=== PATIENT | male | born 1990 | race Caucasian/White ===

== ENCOUNTER 2021-12-29 08:39 | Emergency (ER) | payer OTHER ==
[2021-12-29] MEDS ORDERED: SODIUM CHLORIDE 0.9% 1,000 ML IV STA (09:19)
[2021-12-29] MEDS ORDERED: KETOROLAC 30 MG/ML VIAL IVP STA (09:19)
[2021-12-29 09:21] LABS: BASOPHILS # (AUTO) 0.1 10^3/uL (0.0-0.1); BASOPHILS % (AUTO) 0.4 %; EOSINOPHILS % (AUTO) 0.3 %; HCT - HEMATOCRIT 45.4 % (42.0-52.0); HGB - HEMOGLOBIN 15.7 g/dL (14.0-18.0); LYMPHOCYTES # (AUTO) 1.8 10^3/uL (1.5-3.5); MEAN CORPUSCULAR HEMOGLOBIN 32.6 pg (27.0-31.0); MEAN CORPUSCULAR HGB CONC 34.6 g/dL (32.0-36.0); MEAN CORPUSCULAR VOLUME 94.4 fL (80.0-94.0); MEAN PLATELET VOLUME 11.2 fL (7.4-11.4); MONOCYTES # (AUTO) 0.6 10^3/uL (0.0-1.0); NEUTROPHILS # (AUTO) 12.6 10^3/uL (1.5-6.6); PLT - PLATELET COUNT 243 10^3/uL (130-450); RED BLOOD COUNT 4.81 10^6/uL (4.70-6.10); RED CELL DISTRIBUTION WIDTH 11.9 % (12.0-15.0); WHITE BLOOD COUNT 15.2 x10^3/uL (4.8-10.8)
[2021-12-29 09:30] LABS: ALBUMIN 4.8 g/dL (3.2-5.5); ALBUMIN/GLOBULIN RATIO 1.8 (1.0-2.2); CALCIUM 9.2 mg/dL (8.5-10.3); CREATININE 0.9 mg/dL (0.6-1.2); POTASSIUM 3.8 mmol/L (3.5-5.0); TOTAL PROTEIN 7.4 g/dL (6.7-8.2)
--- NOTE | 2021-12-29 09:53 | CT Report ---
PROCEDURE: ABDOMEN/PELVIS WO INDICATIONS: L flank pain TECHNIQUE: Noncontrast 5 mm thick sections acquired from the diaphragms to the symphysis. 5 mm coronal and sagi ttal reformats were then performed. For radiation dose reduction, the following was used: automated exposure control, adjustment of mA and/or kV according to patient size. COMPARISON: None. FINDINGS: Image quality: Excellent. ABDOMEN: Lung bases: Lung bases are clear. Heart size is normal. Solid organs: Mild left hydronephrosis. No perinephric inflammation. No retained calculi. Mild left h ydroureter. A 3 mm ovoid calcification is present in the left distal ureter a few centimeters proxima l to the ureterovesicular junction. No right-sided renal or ureteral calculi. The unenhanced appearance of the liver, gallbladder, biliary system, pancreas, spleen, and adrenal gl ands is normal. Peritoneum and bowel: Unenhanced stomach and bowel loops demonstrate normal wall thickness and calib er. The appendix contains a small amount of radiodense material and gas. No periappendiceal inflammat ion. Occasional distal descending colon diverticula. No free fluid or air. Nodes and vessels: No retroperitoneal or mesenteric adenopathy by size criteria. Aorta and inferior vena cava are normal in caliber. Miscellaneous: Tiny fat-containing umbilical hernia.. PELVIS: Genitourinary: Bladder wall thickness is normal. Normal size prostate gland. Miscellaneous: No inguinal hernias or adenopathy. Bones: No suspicious bony lesions. No vertebral body compression fractures. IMPRESSION: 1. 3 mm left distal ureteral calculus causing mild hydroureteronephrosis. Reviewed by: Maria Fernanda Zazueta MD on 12/29/2021 8:51 AM [email or web address] Approved by: Maria Fernanda Zazueta MD on 12/29/2021 8:51 AM AKDT Station ID: [id number]
--- NOTE | 2021-12-29 10:14 | ED Physician Documentation ---
PD HPI MALE - Stated complaint Stated Complaint: LT SIDE PX - Chief complaint Chief Complaint: Abd Pain - History obtained from History obtained from: Patient, Family - History of Present Illness Timing - onset: Today Timing - duration: Hours Timing - details: Abrupt onset, Still present Associated symptoms: Testiclar pain, Back pain. No: Hematuria, Discharge Similar symptoms before: Diagnosis (kidney stone) Recently seen: Not recently seen - Additional information Additional information: 31-year-old Quyen Saxena has awoken this morning with left-sided flank pain, nausea and diaphoresis. He is in significant pain similar to what he is had with a prior kidney stone. He is come to the emergency department for evaluation. He was not ill prior to this. Review of Systems Constitutional: denies: Fever Ears: denies: Ear pain Nose: denies: Congestion Throat: denies: Sore throat Cardiac: denies: Chest pain / pressure, Palpitations Respiratory: denies: Dyspnea, Cough GI: reports: Abdominal Pain, Nausea. denies: Vomiting, Constipation, Diarrhea : denies: Dysuria Skin: denies: Rash Musculoskeletal: reports: Back pain. denies: Neck pain, Extremity pain PD PAST MEDICAL HISTORY - Past Medical History Past Medical History: Yes Cardiovascular: None Respiratory: None Neuro: None Endocrine/Autoimmune: None GI: None : Kidney stones HEENT: None Psych: None Musculoskeletal: None Derm: None - Past Surgical History Past Surgical History: No - Present Medications Home Medications: Ambulatory Orders Medication Instructions Recorded Confirmed HYDROcod/ACETAM 5/325 [[place]isco[place] 5/325] 1 - 2 tablet PO Q6H PRN #14 tablet 12/29/21 - Allergies Allergies/Adverse Reactions: Allergies Allergy/AdvReac Type Severity Reaction Status Date / Time No Known Drug Allergies Allergy Verified 12/29/21 08:55 - Social History Does the pt smoke?: No Smoking Status: Never smoker - Immunizations Immunizations are current?: Yes PD ED PE NORMAL - Vitals Vital signs reviewed: Yes (tchypneic) - General General: Alert and oriented X 3, Well developed/nourished, Other (31 y/o male appears to be in pain with grunting and grimacing ) - HEENT HEENT: Atraumatic, PERRL, EOMI - Neck Neck: Supple, no meningeal sign, No bony TTP - Cardiac Cardiac: RRR, No murmur - Respiratory Respiratory: No respiratory distress, Clear bilaterally - Abdomen Abdomen: Normal bowel sounds, Soft, Non tender, Non distended, No organomegaly - Back Back: No CVA TTP, No spinal TTP - Derm Derm: Normal color, Warm and dry, No rash - Extremities Extremities: No deformity, No edema - Neuro Neuro: Alert and oriented X 3, 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, No motor deficit, No sensory deficit, Normal speech Eye Opening: Spontaneous Motor: Obeys Commands Verbal: Oriented GCS Score: 15 - Psych Psych: Normal mood, Normal affect Results - Vitals Vitals: Vital Signs - 24 hr 12/29/21 12/29/21 08:55 09:37 Temperature 36.3 C L Heart Rate 48 L 47 L Respiratory 28 H 20 Rate Blood Pressure 125/75 123/76 O2 Saturation 100 100 Oxygen O2 Source Room air - Labs Labs: Laboratory Tests 12/29/21 12/29/21 12/29/21 09:13 09:13 10:30 WBC 15.2 H RBC 4.81 Hgb 15.7 Hct 45.4 MCV 94.4 H MCH 32.6 H MCHC 34.6 RDW 11.9 L Plt Count 243 MPV 11.2 Neut # (Auto) 12.6 H Lymph # (Auto) 1.8 Rains # (Auto) 0.6 Eos # (Auto) 0.0 Baso # (Auto) 0.1 Absolute Nucleated RBC 0.00 Nucleated RBC % 0.0 Sodium 140 Potassium 3.8 Chloride 104 Carbon Dioxide 26 Anion Gap 10.0 BUN 11 Creatinine 0.9 Estimated GFR (MDRD) 98 Glucose 168 H Calcium 9.2 Total Bilirubin 1.0 AST 70 H ALT 52 Alkaline Phosphatase 50 Total Protein 7.4 Albumin 4.8 Globulin 2.6 Albumin/Globulin Ratio 1.8 Lipase 28 Urine Color YELLOW Urine Clarity CLEAR Urine pH 6.0 Ur Specific [place] 1.020 Urine Protein NEGATIVE Urine Glucose (UA) NEGATIVE Urine Ketones 15 H Urine Occult Blood LARGE H Urine Nitrite NEGATIVE Urine Bilirubin NEGATIVE Urine Urobilinogen 0.2 (NORMAL) Ur Leukocyte Esterase NEGATIVE Urine RBC 11-25 H Urine WBC 4-5 Ur Squamous Epith Cells NONE SEEN Urine Bacteria None Seen Ur Microscopic Review INDICATED Urine Culture Comments NOT INDICATED - Rads (name of study) cT Radiology: Prelim report reviewed (Impression: 1. 3 mm left distal ureteral calculus causing mild hydro ureteral nephrosis.) Procedures - Bedside sono Bedside sono by EMP: With use of bedside ultrasound the left kidney is imaged the area is sonographically tender there is evidence of hydronephrosis and there is no perinephric fluid. PD MEDICAL DECISION MAKING - ED course Complexity details: reviewed results, re-evaluated patient, considered differential, d/w patient, d/w family ED course: 31-year-old male presents to the emergency department with left flank pain has hydro on bedside ultrasound appears uncomfortable he is treated with a liter of saline and 30 mg of Toradol with marked improvement in his pain. A CT scan demonstrates a 3 mm distal ureteral stone. We will send the patient home with some pain medication if this is required and we will refer him to urology and do not expect him to need the referral. Departure - Departure Disposition: Home, Self Care Clinical Impression: Ureterolithiasis Condition: Stable Instructions: ED Stone Renal W Colic Follow-Up: DAMON SARMIENTO DO [Primary Care Provider] - Jude Ayala MD [Physician No Access] - Prescriptions: HYDROcod/ACETAM 5/325 [[place]iscoe 5/325] 1 - 2 tablet PO Q6H PRN #14 tablet PRN Reason: Pain Comments: Cristinuel, today it looks like you have a kidney stone that is just about anterior bladder and our expectation is that this will pass without a problem. If you have spikes in the similar pain that likely indicates the stone has not passed entirely. It may take up to 2 days for it to pass. I have E scribed some pain medication to the [facility] in [place] for you if you need that.
[2021-12-29 10:42] LABS: BILIRUBIN,URINE NEGATIVE (NEGATIVE); GLUCOSE, URINE (UA) NEGATIVE (NEGATIVE); KETONES,URINE (UA) 15 mg/dL (NEGATIVE); LEUKOCYTE ESTERASE, URINE NEGATIVE (NEGATIVE); NITRITE,URINE NEGATIVE (NEGATIVE); OCCULT BLOOD,URINE LARGE (NEGATIVE); PROTEIN,URINE NEGATIVE (NEGATIVE); UROBILINOGEN,URINE 0.2 (NORMAL) E.U./dL (NORMAL)
[2021-12-29 10:43] LABS: CLARITY,URINE CLEAR (CLEAR)
[2021-12-29 10:55] LABS: BACTERIA,URINE None Seen /HPF (None Seen); SQUAMOUS EPITHELIAL CELL,UR NONE SEEN (<= Few)
[2021-12-29 11:27] VITALS: BP 120/74
== END 2021-12-29 11:31 | disposition home or self-care (01) ==
LOC: ED 08:39
DX: N13.2 Hydronephrosis with renal and ureteral calculous obstruction (principal)
CPT/HCPCS: 36415; 80053; 81001; 81003; 83690; 85025; 87086; 96374; 99284